=== PATIENT | female | born 1970 | race Caucasian/White ===

== ENCOUNTER 2021-03-16 06:44 | Emergency (ER) | payer BC ==
[2021-03-16 08:46] LABS: HEMOGLOBIN 14.2 gm/dl (12.3-15.3); RED BLOOD COUNT 4.44 M/UL (4.00-5.10); WHITE BLOOD COUNT 11.3 K/UL (4.5-11.0)
[2021-03-16 09:09] LABS: BUN/CREATININE RATIO 23 (0-10)
[2021-03-16] MEDS ORDERED: MOBIC15 MG PO (12:45)
[2021-03-16] MEDS ORDERED: CYCLOBENZAPRINE10 MG PO (12:45)
== END 2021-03-16 13:07 | disposition home or self-care (01) ==
LOC: ER1 06:44
PROVIDERS: Physician Assistant
DX: R07.81 Pleurodynia (principal); R10.12 Left upper quadrant pain; R10.9 Unspecified abdominal pain; E78.5 Hyperlipidemia, unspecified; F17.200 Nicotine dependence, unspecified, uncomplicated; Z90.710 Acquired absence of both cervix and uterus
CPT/HCPCS: 71045; 80053; 81001; 82150; 83690; 85025; 96372; 99284; J1885; Q9967